=== PATIENT | male | born 1975 | race Two or more races ===

== ENCOUNTER 2018-01-03 06:37 | Day surgery (SDC) | payer SELFPAY ==
[~2018-01-03 06:37] MED LIST: Lactated Ringers 1,000 ML IV SCH; ceFAZolin 2 GM in Premix Bag 1 BAG IV ONE
[2018-01-03] MEDS ORDERED: fentaNYL 100 MCG/2 ML SDV ONE ×2 (07:05→08:16)
[2018-01-03] MEDS ORDERED: Propofol 200 MG/20 ML SDV ONE (07:05)
[2018-01-03] MEDS ORDERED: Midazolam 1 MG/ML 2 ML SDV ONE (07:05)
[2018-01-03] MEDS ORDERED: Ondansetron 4 MG/2 ML SDV ONE (07:07)
[2018-01-03] MEDS ORDERED: diphenhydrAMINE 50 MG/ML SDV ONE (07:07)
[2018-01-03] MEDS ORDERED: Bupivacaine 25%/EPINEPHrine/PF 30 ML ONE (07:14)
--- NOTE | 2018-01-03 07:24 | PCM.PREANE ---
Preanesthetic Assessment - Anesthesia/Transfusion/Family Hx Anesthesia History: Prior Anesthesia Without Reaction Family History of Anesthesia Reaction: No Transfusion History: No Prior Transfusion(s) Intubation History: Unknown - Review of Systems General: No Symptoms Pulmonary: No Symptoms Cardiovascular: No Symptoms Gastrointestinal: No Symptoms Neurological: No Symptoms Other: Reports: None - Physical Assessment O2 Sat by Pulse Oximetry: 96 Respiratory Rate: 16 Vital Signs: Last Vital Signs Temp 36.9 C 01/03/18 07:17 Pulse 83 01/03/18 07:17 Resp 16 01/03/18 07:17 BP 120/78 01/03/18 07:17 Pulse Ox 96 01/03/18 07:17 Height: 1.73 m Weight: 106.594 kg ASA Class: 2 Mental Status: Alert & Oriented x3 Airway Class: Mallampati = 2 Dentition: Reports: Normal Dentition Thyro-Mental Finger Breadths: 3 Mouth Opening Finger Breadths: 3 ROM/Head Extension: Full Lungs: Clear to Auscultation, Normal Respiratory Effort Cardiovascular: Regular Rate, Regular Rhythm - Allergies Allergies/Adverse Reactions: Allergies Allergy/AdvReac Type Severity Reaction Status Date / Time No Known Allergies Allergy Verified 01/02/18 11:06 - Blood Blood Available: No - Anesthesia Plan Pre-Op Medication Ordered: None - Acknowledgements Anesthesia Type Planned: MAC (general anesthesia back-up plan) Pt an Appropriate Candidate for the Planned Anesthesia: Yes Alternatives and Risks of Anesthesia Discussed w Pt/Guardian: Yes Pt/Guardian Understands and Agrees with Anesthesia Plan: Yes PreAnesthesia Questionnaire Musculoskeletal History: Reports: Fracture (ORIF left forarm fr.) Endocrine/Metabolic History: Reports: Obesity/BMI 30+ - Past Surgical History Musculoskeletal Surgical History: Reports: ORIF Other Musculoskeletal Surgeries/Procedures:: hx of ORIF left arm (hardware removed) - SUBSTANCE USE Smoking Status *Q: Never Smoker Days Per Week of Alcohol Use: 7 Number of Drinks Per Day: 7 Total Drinks Per Week: 49 Recreational Drug Use History: No - HOME MEDS Home Medications: Home Meds . [No Known Home Meds] 01/02/18 [History] - CURRENT (IN HOUSE) MEDS Current Meds: Current Medications Lactated Ringer's (Ringers, Lactated) 1,000 mls @ 125 mls/hr IV ASDIRECTED LIZZETTE Last Admin: 04/06/18 07:19 Dose: 125 mls/hr Discontinued Medications Diphenhydramine HCl (Benadryl) Confirm Administered Dose 50 mg .ROUTE .STK-MED ONE Stop: 01/03/18 07:08 Fentanyl (Sublimaze) Confirm Administered Dose 100 mcg .ROUTE .STK-MED ONE Stop: 01/03/18 07:06 Cefazolin Sodium/Dextrose 2 gm (/ Premix) 50 mls @ 100 mls/hr IV ONETIME ONE Stop: 01/03/18 05:29 Bupivacaine HCl/Epinephrine Bitart (Sensorc Mpf 0.25%-Epi [id number]) Confirm Administered Dose 30 mls @ as directed .ROUTE .STK-MED ONE Stop: 01/03/18 07:15 Lidocaine HCl (Xylocaine-Mpf 1%) Confirm Administered Dose 5 ml .ROUTE .STK-MED ONE Stop: 01/03/18 07:08 Midazolam HCl (Versed 1 Mg/Ml) Confirm Administered Dose 4 mg .ROUTE .STK-MED ONE Stop: 01/03/18 07:06 Ondansetron HCl (Zofran) Confirm Administered Dose 4 mg .ROUTE .STK-MED ONE Stop: 01/03/18 07:08 Propofol (Diprivan 20 Ml) Confirm Administered Dose 200 mg .ROUTE .STK-MED ONE Stop: 01/03/18 07:06
[2018-01-03] MEDS ORDERED: ceFAZolin 1 GM Vial ONE (08:08)
[2018-01-03] MEDS ORDERED: fentaNYL 100 MCG/2 ML SDV IVPUSH PRN (08:18)
--- NOTE | 2018-01-03 09:19 | PCM.OPNOTE ---
- General Post-Op/Procedure Note Date of Surgery/Procedure: 01/03/18 Operative Procedure(s): excisional bx L arm mass Findings: large mass 4 cm, just prox to L antecubical fossa, cw ruptured sebaceous cyst; skin incision 4.5 X 4 cm; [id number] Pre Op Diagnosis: L arm mass Post-Op Diagnosis: Same Anesthesia Technique: General LMA Primary Surgeon: Jourdan Blair Pathology: sent Complications: None Condition: Good Free Text/Narrative:: Intake & Output 01/02/18 01/03/18 01/03/18 22:59 06:59 14:59 Intake Total 1000 Balance 1000
--- NOTE | 2018-01-03 09:27 | PCM48HPAN ---
Post Anesthesia Note - EVALUATION WITHIN 48HRS OF ANESTHETIC Vital Signs in Normal Range: Yes Patient Participated in Evaluation: Yes Respiratory Function Stable: Yes Airway Patent: Yes Cardiovascular Function Stable: Yes Hydration Status Stable: Yes Pain Control Satisfactory: Yes Nausea and Vomiting Control Satisfactory: Yes Mental Status Recovered: Yes Resp Rate: 22 - COMMENTS/OBSERVATIONS Free Text/Narrative:: no anesthesia problems
--- NOTE | 2018-01-03 13:43 | OR ---
SURGEON: Jourdan Blair MD DATE OF PROCEDURE: 01/03/2018 PREOPERATIVE DIAGNOSIS: Left arm mass. POSTOPERATIVE DIAGNOSIS: Left arm mass. PROCEDURE PERFORMED: Excisional biopsy. COMPLICATIONS: None. FINDINGS: The mass is really big, almost like 80% of the diameter of the antecubital fossa of the left arm, had a coating and a whitish material consistent with ruptured spaces. PROCEDURE IN DETAIL: The patient was taken to operating room and placed in supine position. Upon induction of LMA, the patient was prepped and draped in a sterile fashion in the left arm on hand table. Local anesthetic was given, and where the ruptured mass is just about 1 cm proximal to the antecubital fossa of the left arm. Extra skin was then trimmed away and the material was then with bluntly and sharp dissection removed, the coating was carefully peeled off, exposed underlying muscle. This was then forwarded extended with irrigation, 1-0 Prolene was used to approximate the two skin and the area was packed with one quarter-inch plain gauze and gave a pressure dressing using Wolf Band-Aid and the wound was clean and dry upon closing. The patient was then awakened, extubated, and transferred to recovery in hemodynamically stable condition. POSTOPERATIVE PLAN: The patient will not be doing dressing on his own. The patient will come to my office every 2 to 3 day to have dressing change. LAURO / MIKE /[id number]
== END 2018-01-03 09:20 | disposition home or self-care (01) ==
LOC: MW.SDS 06:37
PROVIDERS: ATTEND Surgery
DX: L72.0 Epidermal cyst (principal); Z98.890 Other specified postprocedural states
CPT/HCPCS: 24076; 87070; 87075; 87077; 87205; J0690; J1200; J2250; J2405; J3010; J7120; 88304; J2704

== ENCOUNTER 2022-03-28 07:37 | Day surgery (SDC) | payer SELFPAY ==
[~2022-03-28 07:37] MED LIST changes: +Lidocaine 2% 5 ML SDV ONE; +Propofol 200 MG/20 ML SDV ONE; -ceFAZolin 2 GM in Premix Bag 1 BAG IV ONE; +fentaNYL 100 MCG/2 ML SDV ONE
[2022-03-28] MEDS ORDERED: Ketamine 500 mg/10 ML MDV ONE (08:58)
[2022-03-28] MEDS ORDERED: propofoL 0 ML ONE (10:23)
== END 2022-03-28 10:45 | disposition home or self-care (01) ==
LOC: MW.SDS 07:37
PROVIDERS: ATTEND Surgery
DX: K70.30 Alcoholic cirrhosis of liver without ascites (principal); E66.9 Obesity, unspecified; Z79.899 Other long term (current) drug therapy; Z98.890 Other specified postprocedural states
CPT/HCPCS: 43235; J2704; J3010; J3490; J7120; 00731